=== PATIENT | female | born 1990 | race Caucasian/White ===

== ENCOUNTER 2023-04-15 23:37 | Emergency (ER) | payer OTHER, SELFPAY ==
--- NOTE | ~2023-04-15 | US_ITS ---
Pelvic ultrasound. Clinical History: Positive test, abdominal pain, history of tubal ligation Technique: Realtime transabdominal and transvaginal scanning of the pelvis was performed. Color flow Doppler and Doppler spectral analysis were performed. Findings: The uterus is anteverted. The endometrial stripe has a thickness of 21 mm. No intrauterine gestational sac is identified. Tiny amount of fluid present in the endometrial cavity. The right ovary measures 3.6 x 2.5 x 2.9 cm. Complex thick-walled cystic lesion in the right adnexa i s suspected to be a corpus luteal cyst. The left ovary measures 2.1 x 2.7 x 2.3 cm. No significant left ovarian or adnexal mass is seen. There is free fluid in the cul de sac. Impression: Positive test without intrauterine gestation. Likely diagnostic considerations would includ e early normal , spontaneous , or nonvisualized ectopic . Continued follow- up with serial beta hCG, and repeat ultrasound as warranted, is advised. Probable right ovarian corpus luteal cyst. Right-sided tubal ectopic is felt to be less likely. Reviewed, dictated and finalized at [facility]. [employer] Impression: Positive test without intrauterine gestation. Likely diagnostic consi derations would include early normal , spontaneous , or nonvis ualized ectopic . Continued follow-up with serial beta hCG, and repeat ultrasound as warranted, is advised. Probable right ovarian corpus luteal cyst. Right-sided tubal ectopic is felt to be less likely.
[2023-04-15 23:39] VITALS: BP 102/64; PULSE 82; RESP 15; TEMP 36.3; O2SAT 100
[2023-04-16] MEDS: SODIUM CHLORIDE 0.9% IV 1,000 ML 999 ML IV CONT (00:18)
[2023-04-16] MEDS: MORPHINE SULFATE (*CRX) 4 MG/ML INJ IV PUSH (00:19)
[2023-04-16 00:34] LABS: Basophils Percent Auto 0.2 % (0.2-1.2); Eosinophils Percent Auto 0.2 % (0-4.4); Hematocrit 37.6 % (37.0-47.0); Hemoglobin 12.8 g/dL (12.0-15.0); Immature Granulocyte Absolute 0.08 K/mm3 (0.00-0.031); Immature Granulocyte Percent A 0.5 % (0-0.5); Lymphocytes Absolute Auto 1.24 K/mm3 (0.9-3.2); Lymphocytes Percent Auto 7.2 % (18.3-44.2); Mean Corpuscular Hemoglobin 31.5 pg (26-34); Mean Corpuscular Volume 92.6 fl (80-100); Mean Platelet Volume 10.8 fl (7.4-10.4); Monocytes Absolute Auto 0.6 K/mm3 (0.1-0.6); Monocytes Percent Auto 3.7 % (2.6-8.5); Neutrophils Absolute Auto 15.3 K/mm3 (1.3-6.7); Neutrophils Percent Auto 88.2 % (45.5-73.1); Platelet Count Result 228 k/mm3 (150-375); Red Blood Count 4.06 M/mm3 (4.2-5.4); White Blood Count 17.3 K/mm3 (4.5-10.0)
[2023-04-16 00:45] LABS: Alanine Aminotransferase 10 U/L (6-35); Albumin Level 3.8 g/dL (3.5-5.1); Alkaline Phosphatase 65 U/L (38-126); Anion Gap 4 mmol/L (8-16); Aspartate Amino Transferase 19 U/L (14-36); Bilirubin,Total 0.6 mg/dL (0.2-1.3); Blood Urea Nitrogen 9 mg/dL (7-17); Calcium 8.4 mg/dL (8.4-10.2); Carbon Dioxide 28 mmol/L (22-30); Chloride 102 mmol/L (98-107); Estimated CRCL calculation 80 ml/min; Estimated Glomerular Filt Rate > 60; Glucose 99 mg/dL (65-110); Potassium 3.6 mmol/L (3.4-5.0); Sodium 134 mmol/L (137-145)
[2023-04-16] MEDS: HYDROmorphone HCL INJ (*CRX) 1 MG/ML SYR IV PUSH ×2 (00:55→03:39)
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
[2023-04-16 03:58] VITALS: BP 128/66; PULSE 82; RESP 16; O2SAT 100
== END 2023-04-16 03:59 | disposition home or self-care (01) ==
PROVIDERS: Emergency Provider Emergency Medicine
DX: O00.90 Unspecified ectopic pregnancy without intrauterine pregnancy (principal); R93.89 Abnormal findings on diagnostic imaging of other specified body structures
CPT/HCPCS: 36415; 76801; 76817; 80053; 84702; 85025; 85461; 86850; 86900; 86901; 96361; 96374; 96375; 96376; 99284; J1170; J2270; J7030

== ENCOUNTER 2023-04-17 11:10 | Outpatient (CLI) | payer OTHER, SELFPAY ==
[2023-04-17 12:08] LABS: Beta HCG Quantitative 412.52 mIU/ML
== END 2023-04-17 11:11 | disposition home or self-care (01) ==
LOC: ANHLAB 11:12
PROVIDERS: Visit Provider Emergency Medicine
DX: O00.90 Unspecified ectopic pregnancy without intrauterine pregnancy (principal); Z3A.00 Weeks of gestation of pregnancy not specified
CPT/HCPCS: 36415; 84702

== ENCOUNTER 2023-04-26 09:42 | Outpatient (CLI) | payer OTHER, SELFPAY ==
[2023-04-26 10:29] LABS: Beta HCG Quantitative 12.57 mIU/ML
== END 2023-04-26 09:43 | disposition home or self-care (01) ==
LOC: ANHLAB 09:43
PROVIDERS: Visit Provider Obstetrics & Gynecology
DX: O36.80X0 Pregnancy with inconclusive fetal viability, not applicable or unspecified (principal); Z3A.00 Weeks of gestation of pregnancy not specified
CPT/HCPCS: 36415; 84702

== ENCOUNTER 2023-05-03 11:38 | Outpatient (CLI) | payer OTHER, SELFPAY ==
[2023-05-03 12:33] LABS: Beta HCG Quantitative < 2.39 mIU/ML
== END 2023-05-03 11:39 | disposition home or self-care (01) ==
LOC: ANHLAB 11:39
PROVIDERS: Visit Provider Obstetrics & Gynecology
DX: O02.1 Missed abortion (principal); O08.9 Unspecified complication following an ectopic and molar pregnancy
CPT/HCPCS: 36415; 84702